=== PATIENT | male | born 1965 | race Caucasian/White ===

== ENCOUNTER 2019-03-05 13:48 | Observation (INO) ==
[2019-03-05 14:47] LABS: Basophils % 0.4 %; Eosinophils # 0.1 K/mcL (0.0-0.6); Eosinophils % 0.5 %; Hematocrit 34.9 % (37.5-50.1); Hemoglobin 10.8 g/dL (12.9-16.9); Immature Granulocytes % 0.5 % (0-4); Lymphocytes # 1.5 K/mcL (0.6-4.6); Lymphocytes % 15.8 %; Mean Corpuscular HGB Conc 30.9 g/dL (31.6-35.5); Mean Corpuscular Hemoglobin 29.3 pg (28.0-33.3); Mean Corpuscular Volume 94.6 fL (83.0-100.0); Mean Platelet Volume 11.1 fL (9.4-12.4); Monocytes # 0.8 K/mcL (0.0-1.3); Monocytes % 8.5 %; Platelet Count 326 K/mcL (140-400); Red Blood Count 3.69 M/mcL (4.19-5.50); Red Cell Distribution Width 14.2 % (11.5-14.5); Segmented Neutrophils % 74.3 %; White Blood Count 9.5 K/mcL (4.3-11.1)
[2019-03-05 14:55] LABS: Bilirubin,Urine Moderate (Negative); Blood,Urine Large (Negative); Clarity,Urine Cloudy (Clear); Color,Urine Red (Yellow); Glucose,Urine (UA) Normal (Normal); Ketones,Urine Trace mg/dL (Negative); Leukocyte Esterase,Urine Large (Negative); Nitrite,Urine Positive (Negative); Protein,Urine >=300 mg/dL (Neg-Trace); Urobilinogen,Urine Normal (Normal)
[2019-03-05 14:58] LABS: Alanine Aminotransferase 8 Units/L (7-52); Albumin 3.7 g/dL (3.5-5.7); Alkaline Phosphatase 73 Units/L (34-104); Aspartate Amino Transferase 12 Units/L (13-39); BUN/Creatinine Ratio 12 (6-26); Bilirubin,Direct 0.1 mg/dL (0.0-0.2); Bilirubin,Indirect 0.3 mg/dL (0.0-1.0); Bilirubin,Total 0.4 mg/dL (0.3-1.0); Blood Urea Nitrogen 13 mg/dL (6-20); Calcium 9.5 mg/dL (8.6-10.3); Carbon Dioxide 30 mEq/L (23-29); Chloride 102 mEq/L (98-107); Globulin 3.8 g/dL (2.4-3.5); Glucose 124 mg/dL (70-105); Lipase 5 Units/L (11-82); Osmolality,Calculated 292 (280-300); Potassium 4.6 mEq/L (3.5-5.1); Sodium 140 mEq/L (136-145); Total Protein 7.5 g/dL (6.4-8.9); eGFR For African Americans > 60 (> 60); eGFR For Non-African Americans > 60 (> 60)
[2019-03-05 14:58] LABS: Bacteria,Urine Many per hpf (None-Few); RBC,Urine TNTC per hpf (0-3); Squamous Epithelial Cell,Urine Few per lpf (None-Few); WBC,Urine 50-100 per hpf (0-3)
[2019-03-05] MEDS ORDERED: cefTRIAXone 1,000 MG in 0.9 % Sodium Chloride Mini Bag 100 ML IVPB ONE (15:16)
[2019-03-05] MEDS ORDERED: Isovue-370 500 ML BOTTLE IVP ONE (15:16)
[2019-03-05] MEDS ORDERED: Naloxone 0.4 MG/ML INJ IVP PRN (21:13)
[2019-03-05] MEDS: Ondansetron ODT 4 MG TAB.RAPDIS SL PRN (21:35)
[2019-03-05] MEDS ORDERED: Benzonatate 100 MG CAPSULE PO ONE (21:38)
[2019-03-06 03:20] LABS: Basophils % 0.3 %; Eosinophils # 0.1 K/mcL (0.0-0.6); Eosinophils % 0.6 %; Hemoglobin 10.7 g/dL (12.9-16.9); Immature Granulocytes % 0.4 % (0-4); Immature Reticulocyte % 17.9 % (11.0-38.0); Lymphocytes # 1.6 K/mcL (0.6-4.6); Lymphocytes % 14.1 %; Mean Corpuscular HGB Conc 32.4 g/dL (31.6-35.5); Mean Corpuscular Hemoglobin 28.8 pg (28.0-33.3); Mean Corpuscular Volume 88.7 fL (83.0-100.0); Mean Platelet Volume 10.9 fL (9.4-12.4); Monocytes # 1.2 K/mcL (0.0-1.3); Monocytes % 10.1 %; Neutrophils # 8.6 K/mcL (1.6-8.9); Platelet Count 334 K/mcL (140-400); Red Blood Count 3.72 M/mcL (4.19-5.50); Red Cell Distribution Width 14.3 % (11.5-14.5); Retculocyte # 0.07 M/mcL (0.05-0.10); Reticulocyte % 1.9 % (1.6-2.8); Segmented Neutrophils % 74.5 %; White Blood Count 11.6 K/mcL (4.3-11.1)
[2019-03-06 03:21] LABS: INR 1.2; Prothrombin Time 13.6 Seconds (9.4-12.1)
[2019-03-06 03:41] LABS: % Iron Saturation 5 % (20-55); Alanine Aminotransferase 7 Units/L (7-52); Albumin 3.4 g/dL (3.5-5.7); Albumin/Globulin Ratio 0.9 (1.1-2.2); Alkaline Phosphatase 64 Units/L (34-104); Aspartate Amino Transferase 11 Units/L (13-39); BUN/Creatinine Ratio 12 (6-26); Bilirubin,Total 0.4 mg/dL (0.3-1.0); Blood Urea Nitrogen 13 mg/dL (6-20); Calcium 9.2 mg/dL (8.6-10.3); Carbon Dioxide 27 mEq/L (23-29); Chloride 105 mEq/L (98-107); Chol/HDL Ratio 4.5 (0-4.9); Cholesterol 122 mg/dL (< 200); Globulin 3.7 g/dL (2.4-3.5); Glucose 120 mg/dL (70-105); HDL Cholesterol 27 mg/dL (40-59); Iron 20 mcg/dL (65-175); LDL Cholesterol,Calculated 73 mg/dL (0-99); Osmolality,Calculated 289 (280-300); Phosphorous 2.9 mg/dL (2.7-4.5); Potassium 3.9 mEq/L (3.5-5.1); Sodium 139 mEq/L (136-145); Total Protein 7.1 g/dL (6.4-8.9); Transferrin 278 mg/dL (203-362); Triglycerides 109 mg/dL (< 150); eGFR For African Americans > 60 (> 60); eGFR For Non-African Americans > 60 (> 60)
[2019-03-06 03:55] LABS: Estimated Average Glucose 97 mg/dl
[2019-03-06 03:58] LABS: Ferritin 41 ng/mL (20-250)
[2019-03-06 04:05] LABS: Folate 8.9 ng/mL (3.0-16.0)
[2019-03-06] MEDS: Ondansetron ODT 4 MG TAB.RAPDIS SL PRN ×2 (07:21→11:14)
[2019-03-06] MEDS ORDERED: cefTRIAXone 1,000 MG in Water for inj. (sterile) 10 ML IVP SCH (09:00)
[2019-03-06] MEDS ORDERED: cefTRIAXone 2,000 MG in Water for inj. (sterile) 20 ML IVP SCH (09:00)
[2019-03-06] MEDS ORDERED: *HR* OxyCODONE Immed Rel 5 MG TABLET PO PRN (10:33)
[2019-03-06] MEDS ORDERED: Morphine Sulfate 2 MG/ML SYRINGE IVP ONE (11:02)
[2019-03-06] MEDS ORDERED: Ketorolac 30 MG/ML VIAL IVP SCH (12:00)
[2019-03-06] MEDS ORDERED: Acetaminophen IV 1,000 MG/100 ML INFUS..BTL IVPB SCH (12:00)
[2019-03-06 16:09] VITALS: BP 149/76
== END 2019-03-06 18:37 | disposition left against medical advice (07) ==
LOC: 3ANU 13:48 → EMEROOARM 13:48 → SUATTDRO 18:46 → 3ANU 19:41
PROVIDERS: ADMIT Internal Medicine; ATTEND Internal Medicine